=== PATIENT | female | born 1985 | race Caucasian/White ===

== ENCOUNTER 2018-07-18 16:08 | Emergency (ER) | END 2018-07-18 17:08 | disposition left against medical advice (07) | LOC: ER 16:08 | DX: Z53.21 Procedure and treatment not carried out due to patient leaving prior to being seen by health care provider (principal) ==

== ENCOUNTER 2019-10-25 21:58 | Emergency (ER) | payer SELFPAY ==
[2019-10-26] MEDS ORDERED: OXYCODONE-ACETAMINOPHEN 5-325 MG TABLET PO ONE (02:36)
[2019-10-26 03:05] LABS: URINE AMPHETAMINES SCREEN NEGATIVE; URINE BARBITURATES SCREEN NEGATIVE; URINE BENZODIAZEPINES SCREEN NEGATIVE; URINE COCAINE SCREEN NEGATIVE; URINE MARIJUANA (THC) SCREEN NEGATIVE; URINE METHADONE SCREEN NEGATIVE; URINE PHENCYCLIDINE SCREEN NEGATIVE
--- NOTE | 2019-10-26 03:15 | RADIOLOGY REPORT (SQ) ---
CLINICAL HISTORY: pain lower t/upper l, prior spinal fx and surgery COMPARISON: None. TECHNIQUE: CT LUMBAR SPINE WITHOUT IV CONTRAST on 10/26/2019 1:13 AM CDT This exam was performed according to our departmental dose-optimization program, which includes automated exposure control, adjustment of the mA and/or kV according to patient size and/or use of iterative reconstruction technique. FINDINGS: There is no acute fracture. Alignment is anatomic. There is partial fusion of the L2 and L3 vertebral bodies with posterior cerclage fixation of the posterior elements at the same level. Disc spaces are maintained. Vertebral body heights are preserved. Soft tissues are unremarkable. IMPRESSION: No acute fracture or subluxation.
--- NOTE | 2019-10-26 04:02 | ER Document Report ---
ED General - General Chief Complaint: Back Pain Stated Complaint: BACK PAIN NAUSEA Primary Care Provider: LUIS CHEN MD [ASSOCIATE] - Follow up as needed Information source: Patient TRAVEL OUTSIDE OF THE [place] IN LAST 30 DAYS: No - HPI Notes: 34-year-old female history of lumbar spinal fracture with surgical fixation as a child associated with chronic back pain presents with acute worsening of back pain for past few days. Did not denies having any trauma or injury but suddenly had significant worsening of pain which normally is able to be controlled with ibuprofen and has not required the patient see any specialist since childhood. Patient denies fever, change in gait, weakness/numbness, urinary retention, bowel incontinence, anticoagulation, immune compromise, any recent procedures/instrumentation, IV drug use, other drug use, flank pain, urinary symptoms - Related Data Allergies/Adverse Reactions: No Known Allergies Allergy (Verified 07/18/18 16:10) Home Medications: metformin, progesterone, ibuprofen prn Past Medical History - General Information source: Patient - Social History Smoking Status: Current Every Day Smoker Family History: Reviewed & Not Pertinent Patient has homicidal ideation: No Review of Systems - Review of Systems Notes: REVIEW OF SYSTEMS: CONSTITUTIONAL : Denies fever, chills, or sweats. EENT: Denies recent cold/sinus symptoms, denies throat pain CARDIOVASCULAR: Denies chest pain, LISA RESPIRATORY: Denies cough, denies shortness of breath. GASTROINTESTINAL: Denies abdominal pain, nausea/vomiting. GENITOURINARY: Denies difficulty urinating, painful urination. FEMALE GENITOURINARY: Denies abnormal vaginal bleeding, vaginal discharge. MUSCULOSKELETAL: Denies neck pain, +back pain. SKIN: Denies rash or skin lesions. HEMATOLOGIC : Denies easy bruising or bleeding. LYMPHATIC: Denies swollen, enlarged glands. NEUROLOGICAL: Denies headache, denies change in gait. PSYCHIATRIC: Denies anxiety or stress or depression. Physical Exam - Vital signs Vitals: Temp Pulse Resp BP Pulse Ox 97.9 F 76 18 153/108 H 98 10/25/19 22:05 10/25/19 22:05 10/25/19 22:05 10/25/19 22:05 10/25/19 22:05 - Notes Notes: PHYSICAL EXAMINATION: GENERAL: Well-appearing, well-nourished, uncomfortable appearing secondary to back pain attempting not to move HEAD: Atraumatic, normocephalic. EYES: Pupils equal round and appropriate constriction, sclera anicteric, conjunctiva are normal. ENT: nares patent, moist mucous membranes. NECK: Normal range of motion, supple without lymphadenopathy LUNGS: Breath sounds clear to auscultation bilaterally and equal. No wheezes rales or rhonchi. HEART: Regular rate and rhythm without murmurs ABDOMEN: Soft, nontender, no guarding, no masses EXTREMITIES: Normal range of motion, no pitting or edema. No cyanosis. No C/T/L/S midline spinal tenderness, healed surgical incision in lumbar area with normal inspection, no CVAT, steady narrow based gait, able to straight leg raise bilaterally, 5 out of 5 strength for extremities, normal sensation NEUROLOGICAL: Awake, alert, conversing appropriately, moves all extremities spontaneously. PSYCH: Normal mood, normal affect. SKIN: Warm, Dry, normal turgor, no rashes or lesions noted. Course - Re-evaluation Re-evalutation: 10/26/19 02:00 Exacerbation of chronic back pain without any neuro deficits, no risk factors for vertebral osteo/epidural abscess, no signs of cord compression/conus medullaris syndrome/cauda equina, normal neuro exam, given prior surgery will rule out hardware migration and fracture with CT. Likely discharge with spine follow-up and return precautions 10/26/19 04:01 Feels greatly improved, no emergent findings on CT, patient ready for discharge, will refer to spine. gave extensive return to ED precautions which patient demonstrated understanding of. - Vital Signs Vital signs: Temp Pulse Resp BP Pulse Ox 97.5 F 55 L 15 114/83 99 10/26/19 04:59 10/26/19 04:59 10/26/19 04:59 10/26/19 04:59 10/26/19 04:59 Discharge - Discharge Clinical Impression: Back pain Qualifiers: Back pain location: low back pain Chronicity: acute Back pain laterality: midline Sciatica presence: without sciatica Qualified Code(s): M54.5 - Low back pain Disposition: HOME, SELF-CARE Additional Instructions: Low Back Pain Three out of every four people will have an episode of disabling back pain during their lifetime. Most commonly the pain is due to straining of the muscles and ligaments in the low back. Usual treatment includes: (1) Rest on a firm surface. Avoid lying on your stomach. (2) Ice pack the painful area. After a few days, gentle heat may be used intermittently to relax the area, or ice packs can be continued. (3) Medication may be needed -- muscle relaxers and antiinflammatory medicines are commonly used. (4) As the back improves, exercises are prescribed to strengthen the back and abdominal muscles. Your doctor will advise you on the proper care for your back at each stage in your recovery. You may be better in a few days -- or healing may take several weeks. Follow-up with orthopedic surgeon within 1 week. Return to ED immediately if you have any worsening pain, fever, change in walking, weakness, numbness, problems with your bowel movements or urination, or any other worsening or alarming symptoms. Your blood pressure was 153/108 in the emergency department which is high. You should have your blood pressure rechecked with your primary doctor within 1 week. Prescriptions: Acetaminophen with Codeine [Tylenol #3 Tablet] 1 each PO Q6HP PRN #6 tablet PRN Reason: Referrals: LUIS CHEN MD [ASSOCIATE] - Follow up as needed
[2019-10-26 05:00] VITALS: BP 114/83
== END 2019-10-26 04:45 | disposition home or self-care (01) ==
LOC: ER 21:58
DX: M54.5 Low back pain (principal); R11.0 Nausea; F17.200 Nicotine dependence, unspecified, uncomplicated
CPT/HCPCS: 72131; 80307; 81025; 99284